=== PATIENT | male | born 1965 | race Caucasian/White ===

== ENCOUNTER → 2017-05-12 09:47 | Outpatient (CLI) | payer BC, SELFPAY ==
--- NOTE | 2017-05-12 09:54 | EKG12_ITS ---
Test Reason : PRE OP Blood Pressure : / mmHG Vent. Rate : 046 BPM Atrial Rate : 046 BPM P-R Int : 162 ms QRS Dur : 098 ms QT Int : 404 ms P-R-T Axes : 044 061 018 degrees QTc Int : 353 ms Marked sinus bradycardia Abnormal ECG Confirmed by MICHELLE NICHOLE ([id number]), online editor RENETTA SCHULZ ([id number] on 05/13/2017 1:19:01 PM Referred By: ROSALBA Confirmed By:MICHELLE NICHOLE
[2017-05-12 10:39] LABS: Absolute Lymphocyte Count 1.44 X10^3/ul (0.83-4.51); Absolute Neutrophil Count 3.6 X10^3/uL (2.0-7.7); Basophil# 0.01 X10^3/uL; Basophil% 0.2 % (0-1); Eosinophil# 0.11 X10^3/uL; Eosinophils% 1.9 % (0-5); Hematocrit 44.4 % (40-54); Lymphocyte # 1.44 X10^3/ul (4.0); Lymphocyte % 25.4 % (19-41); Mean Corp Hgb Conc 33.8 g/gl (32-36); Mean Corpuscular Hgb 30.4 pg (27.0-32.0); Mean Corpuscular Volume 90.1 fL (80-94); Mean Platelet Vol. 10.2 fl (6.2-12.0); Monocyte# 0.52 X10^3/uL; Monocyte% 9.2 % (0-10); Neutrophil # 3.57 X10^3/uL (2.7-7.7); Neutrophil % 63.1 % (47-70); Platelet Count 203 K/mm3 (150-450); RBC Distribution Width CV 12.6 % (11.6-14.6); RBC Distribution Width SD 41.1 fl (35.1-43.9); Red Blood Count 4.93 M/mm3 (4.6-6.2); White Blood Count 5.7 K/mm3 (4.4-11.0)
[2017-05-12 10:51] LABS: POSITIVE COUNT NO; POSITIVE DIFFERENTIAL NO; POSITIVE MORPHOLOGY NO
[2017-05-12 10:59] LABS: Anion Gap 8 (5-15); BUN 15 mg/dL (7-18); BUN/Creat Ratio 14.4 RATIO (10-20); Calcium,Total 8.9 mg/dL (8.5-10.1); Chloride 105 mmol/L (98-107); Creatinine, Serum 1.04 mg/dL (0.70-1.30); EST Glomerular Filtration Rate 80 mL/min (>60); Est Glom Filt Rate - Afr Amer 96 mL/min (>60); Glucose 92 mg/dL (74-106); Potassium 4.2 mmol/L (3.5-5.1); Sodium Level 140 mmol/L (136-145)
== END ==
PROVIDERS: Family Provider Family Medicine; PCP Family Medicine; Visit Provider Surgery
DX: Z01.810 Encounter for preprocedural cardiovascular examination (principal); I87.2 Venous insufficiency (chronic) (peripheral); I83.12 Varicose veins of left lower extremity with inflammation; M79.662 Pain in left lower leg
CPT/HCPCS: 36415; 80048; 85025; 93005

== ENCOUNTER → 2017-05-31 09:46 | Outpatient (CLI) | payer BC, SELFPAY ==
--- NOTE | 2017-05-31 09:48 | VDLE_ITS ---
Reason For Study: LEG PAIN RIGHT LEFT CFV is compressible, spontaneous, phasic, CFV is compressible, spontaneous, phasic, competent and demonstrates normal competent, and demonstrates normal augmentation. augmentation. Procedure FV is compressible, spontaneous, phasic, Exam performed in department. competent and demonstrates normal A preliminary report was called and/or faxed augmentation. to Dr. Nunez. POP V is compressible, spontaneous, phasic, competent and demonstrates normal augmentation. T/P Trunk is compressible. PTV is compressible. LT PerV is compressible. Distal gastrocs are dilated and non- compressible GSV and SSV are occluded s/p EVLA. Interpretation Summary Acute deep vein thrombosis is noted in a short segment of the distal left gastrocnemius vein. The remainder of the left lower extremity deep venous system is patent and compressible. Valvular competence appears intact within the proximal deep venous system on the left . The left great saphenous vein and small saphenous vein are occluded, consistent with a recent endothermal ablation procedure. Ordering Physician: Nir Nunez Performed By: Amy Fischer RVT
== END ==
PROVIDERS: Family Provider Family Medicine; PCP Family Medicine; Visit Provider Surgery
DX: M79.605 Pain in left leg (principal)
CPT/HCPCS: 93971

== ENCOUNTER → 2017-06-04 08:41 | Outpatient (CLI) | payer BC, SELFPAY ==
--- NOTE | 2017-06-04 08:43 | VDLE_ITS ---
Reason For Study: LLE pain Procedure LEFT Exam performed in department. CFV is compressible, spontaneous, phasic, The exam was diagnostic. competent, and demonstrates normal A preliminary report was called and/or faxed augmentation. to Dr. Nunez @ 9:20 am. FV is compressible, spontaneous, phasic, competent and demonstrates normal augmentation. POP V is compressible, spontaneous, phasic, competent and demonstrates normal augmentation. T/P Trunk is compressible. PTV is compressible. LT PerV is compressible. GSV & SSV are occluded S/P EVLA. Distal Gastrocnemius V is non compressible. Proximal and mid Gastronemius V is compressible. Interpretation Summary Acute deep vein thrombosis is noted in a short segment of the distal left gastrocnemius vein. The remainder of the left lower extremity deep venous system is patent and compressible. Valvular competence appears intact within the proximal deep venous system on the left . The left great saphenous vein and small saphenous vein are occluded, consistent with a recent endothermal ablation procedure. There has been no significant change since a prior study on 05/31/2017. Ordering Physician: Nir Nunez Referring Physician: Javon Lomeli Performed By: Irena Martinez, JOSH, RVT
== END ==
PROVIDERS: Family Provider Family Medicine; PCP Family Medicine; Visit Provider Surgery
DX: M79.605 Pain in left leg (principal)
CPT/HCPCS: 93971; J2405